=== PATIENT | male | born 1950 | race Caucasian/White ===

== ENCOUNTER 2020-03-18 07:28 | Emergency (ER) | payer BC, MEDICARE ==
--- NOTE | 2020-03-18 07:48 | EDM.PDOC ---
ED HPI GENERAL MEDICAL PROBLEM - General Chief Complaint: Respiratory Problem Stated Complaint: MUSCLE CRAMP Time Seen by Provider: 03/18/20 07:33 Source of Information: Reports: Patient History Limitations: Reports: No Limitations - History of Present Illness INITIAL COMMENTS - FREE TEXT/NARRATIVE: 69-year-old male no past medical history, no daily medications, presents for martin bjective fever, body aches, cough, shortness of breath, chest tightness all worsening over the last week. Patient does note positive Covid exposure. Patient notes that symptoms seem to be worsening. His cough is mildly productive. Notes that yesterday he "could barely drag myself into the back door". generalized Pain Score (Numeric/FACES): 2 - Related Data Allergies Allergy/AdvReac Type Severity Reaction Status Date / Time No Known Allergies Allergy Verified 03/18/20 07:37 Home Meds: Home Meds . 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 ED EXAM, GENERAL - Physical Exam Exam: See Below Exam Limited By: No Limitations General Appearance: Alert, WD/WN, No Apparent Distress Ears: Normal External Exam Nose: Normal Inspection Throat/Mouth: Normal Inspection, Normal Lips, Normal Oropharynx, Normal Voice, No Airway Compromise Head: Atraumatic, Normocephalic Neck: Normal Inspection, Supple Respiratory/Chest: No Respiratory Distress, Lungs Clear, Normal Breath Sounds, No Accessory Muscle Use Cardiovascular: Normal Peripheral Pulses, Regular Rate, Rhythm GI/Abdominal: Soft, Non-Tender Extremities: Normal Inspection Neurological: Alert, Normal Gait Psychiatric: Normal Affect, Normal Mood Skin Exam: Warm, Dry, Intact, Normal Color #1 Interpretation EKG Date: 03/18/20 Time: 08:09 Rhythm: NSR Rate (Beats/Min): 87 [place]: Normal P-Wave: Present QRS: Normal ST-T: Normal QT: Normal GA/PQ Interval: 70 Comparison: NA - No Prior EKG EKG Interpretation Comments: poor baseline, no overt ischemic changes Course - Vital Signs Last Recorded V/S: Last Vital Signs Temp 99.0 F 03/18/20 07:37 Pulse 75 03/18/20 08:40 Resp 18 03/18/20 08:40 BP 129/84 03/18/20 08:40 Pulse Ox 96 03/18/20 08:40 - Orders/Labs/Meds Orders: Active Orders 24 hr Category Date Time Status EKG Documentation Completion [RC] STAT Care 03/18/20 07:54 Active Pulse Oximetry [RC] ASDIRECTED Care 03/18/20 07:54 Active PROCALCITONIN [REF] Stat Lab 03/18/20 08:05 Received Sodium Chloride 0.9% [Saline Flush] Med 03/18/20 07:54 Active 10 ml FLUSH ASDIRECTED PRN Sodium Chloride 0.9% [Saline Flush] Med 03/18/20 07:54 Active 2.5 ml FLUSH ASDIRECTED PRN Saline Lock Insert [OM.PC] Stat Oth 03/18/20 07:54 Ordered Medication Orders Sodium Chloride (Saline Flush) 10 ml FLUSH ASDIRECTED PRN PRN Reason: Keep Vein Open Sodium Chloride (Saline Flush) 2.5 ml FLUSH ASDIRECTED PRN PRN Reason: Keep Vein Open Labs: Laboratory Tests 03/18/20 03/18/20 03/18/20 Range/Units 08:05 08:05 08:05 WBC 3.75 L (4.0-11.0) K/uL RBC 3.86 L (4.50-5.90) M/uL Hgb 12.2 L (13.0-17.0) g/dL Hct 35.9 L (38.0-50.0) % MCV 93.0 (80.0-98.0) fL MCH 31.6 (27.0-32.0) pg MCHC 34.0 (31.0-37.0) g/dL RDW Std Deviation 46.6 (28.0-62.0) fl RDW Coeff of Vanessa 14 (11.0-15.0) % Plt Count 140 L (150-400) K/uL MPV 10.50 (7.40-12.00) fL Neut % (Auto) 64.1 (48.0-80.0) % Lymph % (Auto) 28.0 (16.0-40.0) % Carver % (Auto) 6.9 (0.0-15.0) % Eos % (Auto) 0.5 (0.0-7.0) % Baso % (Auto) 0.5 (0.0-1.5) % Neut # (Auto) 2.4 (1.4-5.7) K/uL Lymph # (Auto) 1.1 (0.6-2.4) K/uL Carver # (Auto) 0.3 (0.0-0.8) K/uL Eos # (Auto) 0.0 (0.0-0.7) K/uL Baso # (Auto) 0.0 (0.0-0.1) K/uL Nucleated RBC % 0.0 /100WBC Nucleated RBCs # 0 K/uL INR 1.08 APTT 33.9 H (18.6-31.3) SEC D-Dimer, Quantitative 0.43 (0.0-0.50) mg/L FEU Lactate 0.7 (0.20-2.00) mmol/L Sodium (136-148) mmol/L Potassium (3.5-5.1) mmol/L Chloride (98-107) mmol/L Carbon Dioxide (21.0-32.0) mmol/L BUN (7.0-18.0) mg/dL Creatinine (0.8-1.3) mg/dL Est Cr Clr Drug Dosing mL/min Estimated GFR (MDRD) ml/min Glucose (74-106) mg/dL Calcium (8.5-10.1) mg/dL Magnesium (1.8-2.4) mg/dL Total Bilirubin (0.2-1.0) mg/dL AST (15-37) IU/L ALT (14-63) IU/L Alkaline Phosphatase (46-116) U/L Troponin I (0.000-0.056) ng/mL C-Reactive Protein (0.00-0.90) mg/dL B-Natriuretic Peptide (<100) PG/ML Total Protein (6.4-8.2) g/dL Albumin (3.4-5.0) g/dL Globulin (2.6-4.0) g/dL Albumin/Globulin Ratio (0.9-1.6) SARS-CoV-2 RNA (NICOL) (NEGATIVE) 03/18/20 03/18/20 03/18/20 Range/Units 08:05 08:05 08:20 WBC (4.0-11.0) K/uL RBC (4.50-5.90) M/uL Hgb (13.0-17.0) g/dL Hct (38.0-50.0) % MCV (80.0-98.0) fL MCH (27.0-32.0) pg MCHC (31.0-37.0) g/dL RDW Std Deviation (28.0-62.0) fl RDW Coeff of Vanessa (11.0-15.0) % Plt Count (150-400) K/uL MPV (7.40-12.00) fL Neut % (Auto) (48.0-80.0) % Lymph % (Auto) (16.0-40.0) % Carver % (Auto) (0.0-15.0) % Eos % (Auto) (0.0-7.0) % Baso % (Auto) (0.0-1.5) % Neut # (Auto) (1.4-5.7) K/uL Lymph # (Auto) (0.6-2.4) K/uL Carver # (Auto) (0.0-0.8) K/uL Eos # (Auto) (0.0-0.7) K/uL Baso # (Auto) (0.0-0.1) K/uL Nucleated RBC % /100WBC Nucleated RBCs # K/uL INR APTT (18.6-31.3) SEC D-Dimer, Quantitative (0.0-0.50) mg/L FEU Lactate (0.20-2.00) mmol/L Sodium 129 L (136-148) mmol/L Potassium 3.7 (3.5-5.1) mmol/L Chloride 95 L (98-107) mmol/L Carbon Dioxide 25.3 (21.0-32.0) mmol/L BUN 16 (7.0-18.0) mg/dL Creatinine 1.4 H (0.8-1.3) mg/dL Est Cr Clr Drug Dosing 57.90 mL/min Estimated GFR (MDRD) 50.2 ml/min Glucose 88 (74-106) mg/dL Calcium 8.3 L (8.5-10.1) mg/dL Magnesium 1.8 (1.8-2.4) mg/dL Total Bilirubin 1.1 H (0.2-1.0) mg/dL AST 141 H (15-37) IU/L ALT 74 H (14-63) IU/L Alkaline Phosphatase 79 (46-116) U/L Troponin I < 0.050 (0.000-0.056) ng/mL C-Reactive Protein 1.80 H (0.00-0.90) mg/dL B-Natriuretic Peptide 11 (<100) PG/ML Total Protein 8.1 (6.4-8.2) g/dL Albumin 3.6 (3.4-5.0) g/dL Globulin 4.5 H (2.6-4.0) g/dL Albumin/Globulin Ratio 0.8 L (0.9-1.6) SARS-CoV-2 RNA (NICOL) POSITIVE H (NEGATIVE) Meds: Medications Generic Name Dose Route Start Last Admin Trade Name Freq PRN Reason Stop Dose Admin Sodium Chloride 10 ml 03/18/20 07:54 Saline Flush FLUSH ASDIRECTED PRN Keep Vein Open Sodium Chloride 2.5 ml 03/18/20 07:54 Saline Flush FLUSH ASDIRECTED PRN Keep Vein Open Discontinued Medications Generic Name Dose Route Start Last Admin Trade Name Freq PRN Reason Stop Dose Admin Acetaminophen 1,000 mg 03/18/20 07:54 03/18/20 08:20 Tylenol Extra Strength PO 03/18/20 07:55 1,000 mg ONETIME ONE Administration Sodium Chloride 1,000 mls @ 999 mls/hr 03/18/20 07:54 03/18/20 08:19 Normal Saline IV 03/18/20 08:54 999 mls/hr .Bolus ONE Administration Ketorolac Tromethamine 15 mg 03/18/20 07:55 03/18/20 08:21 Toradol IVPUSH 03/18/20 07:56 15 mg ONETIME ONE Administration - Re-Assessments/Exams Free Text/Narrative Re-Assessment/Exam: 03/18/20 08:09 Patient's history and physical exam are concerning for COVID-19 infection. Patient's oxygen saturation on room air ranges between 88 and 92%. Nasal cannula oxygen was applied with improvement in oxygenation to mid 90s. We will get COVID-19 swabbing, chest x-ray, blood labs. Will treat symptomatically with IV fluid bolus, Toradol, Tylenol. We will follow up results and disposition accordingly. Patient will likely need to stay considering hypoxia on room air. 03/18/20 09:35 Blood labs show changes consistent with COVID-19. COVID-19 PCR testing is positive. Chest x-ray shows possible infiltrate, no bilateral infiltrates or groundglass opacities indicative of COVID-19 pneumonia. Patient's O2 sats do remain low on room air in the upper 80s and low 90s, improving to mid 90s on nasal cannula oxygen. 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 I explained to patient at length the risks of leaving AGAINST MEDICAL ADVICE including worsening respiratory symptoms, permanent cardiac damage, permanent pulmonary damage, permanent disability, and . Patient verbalizes understanding of these risks, and still chooses to leave AGAINST MEDICAL ADVICE. It was explained to patient that his leaving AGAINST MEDICAL ADVICE today has no bearing on us treating him in the future, and he was encouraged to return to the emergency department if he changes his mind or if symptoms worsen. Departure - Departure Time of Disposition: 09:37 Disposition: Against Medical Advice 07 Condition: Serious Clinical Impression: COVID-19 - Discharge Information Instructions: COVID-19: How to Protect Yourself and Others - CDC, COVID-19 Frequently Asked Questions, COVID-19 Referrals: PCP,None [Primary Care Provider] - Forms: ED Department Discharge Additional Instructions: Your testing was remarkable for positive COVID-19 test. Your oxygen saturation which is a measurement of how efficiently your blood is able to carry oxygen throughout your body was dangerously low. It improved when we put you on oxygen. It is our recommendation that you stay in the hospital to be treated and to receive supplemental oxygen. If you change your mind about staying in the hospital, and certainly if symptoms worsen, you are encouraged to return to the emergency department for treatment. We are always glad to see you regardless of your decision to leave against medical advice today, and regardless of your ability to pay for services. The following information is given to patients seen in the emergency department who are being discharged to home. This information is to outline your options for follow-up care. We provide all patients seen in our emergency department with a follow-up referral. The need for follow-up, as well as the timing and circumstances, are variable depending upon the specifics of your emergency department visit. If you don't have a primary care physician on staff, we will provide you with a referral. We always advise you to contact your personal physician following an emergency department visit to inform them of the circumstance of the visit and for follow-up with them and/or the need for any referrals to a consulting specialist. The emergency department will also refer you to a specialist when appropriate. This referral assures that you have the opportunity for follow-up care with a specialist. All of these measure are taken in an effort to provide you with optimal care, which includes your follow-up. Under all circumstances we always encourage you to contact your private physician who remains a resource for coordinating your care. When calling for follow-up care, please make the office aware that this follow-up is from your recent emergency room visit. If for any reason you are refused follow-up, please contact the [facility] Emergency Department at and asked to speak to the emergency department charge nurse. Please follow up with your primary care physician. If you do not have a primary care physician, see below: [facility] [address] [place] [id number] [facility] [address] [place] [id number] Sepsis Event Note (ED) - Evaluation Sepsis Screening Result: No Definite Risk - Focused Exam Vital Signs: Vital Signs Temp Pulse Resp BP Pulse Ox 03/18/20 08:40 75 18 129/84 96 03/18/20 07:37 99.0 F 94 18 105/75 91 L - My Orders Last 24 Hours: My Active Orders 03/18/20 07:54 EKG Documentation Completion [RC] STAT Pulse Oximetry [RC] ASDIRECTED Sodium Chloride 0.9% [Saline Flush] 10 ml FLUSH ASDIRECTED PRN Sodium Chloride 0.9% [Saline Flush] 2.5 ml FLUSH ASDIRECTED PRN Saline Lock Insert [OM.PC] Stat 03/18/20 08:05 PROCALCITONIN [REF] Stat - Assessment/Plan Last 24 Hours: My Active Orders 03/18/20 07:54 EKG Documentation Completion [RC] STAT Pulse Oximetry [RC] ASDIRECTED Sodium Chloride 0.9% [Saline Flush] 10 ml FLUSH ASDIRECTED PRN Sodium Chloride 0.9% [Saline Flush] 2.5 ml FLUSH ASDIRECTED PRN Saline Lock Insert [OM.PC] Stat 03/18/20 08:05 PROCALCITONIN [REF] Stat
[2020-03-18] MEDS ORDERED: Sodium Chloride 0.9% 1,000 ML IV ONE (07:54)
[2020-03-18] MEDS ORDERED: Sodium Chloride 0.9% 10 ML Syringe FLUSH PRN (07:54)
[2020-03-18] MEDS ORDERED: Sodium Chloride 0.9% 2.5 ML Syringe FLUSH PRN (07:54)
[2020-03-18] MEDS ORDERED: Acetaminophen 500 MG Tab PO ONE (07:54)
[2020-03-18] MEDS ORDERED: Ketorolac 15 MG/ML SDV IVPUSH ONE (07:55)
--- NOTE | 2020-03-18 08:23 | CR ---
INDICATION: Pt with cough, possible COVID. Pt kept coughing during exam, best image sent. Indication: Cough. Clinical concern for COVID-19 pneumonia. Technique: Chest one view. Comparison: None. Findings: Heart size and pulmonary vasculature are within normal limits. There is an indeterminate infiltrate at the left lung base, which could represent atelectasis or pneumonia. The radiographic pattern is not typical for viral pneumonia. Clinical and imaging follow-up is suggested. Central airway is normal. Osseous structures are intact. Impression: 1. Infiltrate at the left lung base may represent atelectasis or pneumonia. 2. Plain radiographic pattern is not typical for viral pneumonia. Dictated by Jeremi Gill MD @ 03/18/2020 8:22:04 AM Dictated by: Jeremi Gill MD @ 03/18/2020 08:22:13 (Electronically Signed)
[2020-03-18 08:53] LABS: BLOOD UREA NITROGEN,BUN 16 mg/dL (7.0-18.0); CARBON DIOXIDE,CO2 25.3 mmol/L (21.0-32.0); CHLORIDE,CL 95 mmol/L (98-107); GLUCOSE RANDOM 88 mg/dL (74-106); POTASSIUM,K 3.7 mmol/L (3.5-5.1); SODIUM,NA 129 mmol/L (136-148)
== END 2020-03-18 10:02 | disposition left against medical advice (07) ==
LOC: MW.ED 07:28
DX: U07.1 COVID-19 (principal)
CPT/HCPCS: 36415; 71045; 80053; 83605; 83735; 83880; 84145; 84484; 85025; 85379; 85610; 85730; 86140; 93005; 96374; 99285; A9270; J1885; J7030; U0002; 93010; 99283